=== PATIENT | male | born 1995 | race Caucasian/White ===

== ENCOUNTER → 2019-08-20 | Outpatient (CLI) | payer OTHER ==
[~2019-08-20] MED LIST: TIZANIDINE HCL4 M1 PO
== END ==
LOC: M.PC 03:35
PROVIDERS: ATTEND Physical Medicine & Rehabilitation
DX: M51.37 Other intervertebral disc degeneration, lumbosacral region (principal); M54.2 Cervicalgia; M79.18 Myalgia, other site